=== PATIENT | female | born 1940 | race Caucasian/White ===

== ENCOUNTER 2021-06-27 19:43 | Inpatient (IN) | payer MEDICARE, BC ==
[2021-06-27] MEDS ORDERED: Albuterol/Ipratropium 3.0-0.5 MG/3 ML Neb Soln NEB ONE (20:15)
[2021-06-27 20:56] LABS: CORONAVIRUS COVID-19 NAA NEGATIVE (NEGATIVE)
[2021-06-27] MEDS ORDERED: Doxycycline Susp 25 MG/5 ML 60 ML Bottle PO ONE (21:08)
[2021-06-27] MEDS ORDERED: cefTRIAXone 1 GM in Sodium Chloride 0.9% 100 ML IV ONE (21:08)
[2021-06-27] MEDS ORDERED: Albuterol 0.083% 2.5 MG/3 ML Neb Soln NEB PRN (22:27)
[2021-06-27] MEDS ORDERED: Acetaminophen 325 MG Tab PO PRN (22:36)
[2021-06-27] MEDS ORDERED: Ondansetron 4 MG/2 ML SDV IVPUSH PRN (22:36)
[2021-06-27] MEDS ORDERED: Doxycycline 100 MG Cap PO ONE (23:45)
[2021-06-28] MEDS: Albuterol/Ipratropium 3.0-0.5 MG/3 ML Neb Soln NEB SCH ×3 (02:02→09:17)
[2021-06-28] MEDS: Pantoprazole 40 MG Tab.CR PO SCH ×2 (06:28→16:51)
[2021-06-28] MEDS: Levothyroxine 100 MCG Tab PO SCH (06:28)
[2021-06-28] MEDS: ClonazePAM 1 MG Tab PO PRN ×2 (06:35→21:12)
[2021-06-28] MEDS ORDERED: FLUoxetine 20 MG Cap PO SCH (07:00)
[2021-06-28] MEDS: Metoprolol Tartrate 50 MG Tab PO SCH ×2 (07:56→16:51)
[2021-06-28] MEDS: Furosemide 20 MG Tab PO SCH (08:00)
[2021-06-28] MEDS: FLUoxetine 20 MG Cap PO SCH (08:00)
[2021-06-28] MEDS: Sucralfate 1 GM Tab PO SCH ×2 (08:00→21:05)
[2021-06-28] MEDS: Enoxaparin 40 MG/0.4 ML Syringe SUBCUT SCH (08:00)
[2021-06-28] MEDS ORDERED: Sucralfate 1 GM Tab PO SCH (09:00)
[2021-06-28] MEDS ORDERED: Doxycycline 100 MG Cap PO SCH (09:00)
[2021-06-28] MEDS ORDERED: LIDO PO PRN (09:22)
[2021-06-28] MEDS ORDERED: [UNRECOGNIZED DRUG - OTHER] PO PRN (09:22)
[2021-06-28] MEDS ORDERED: DIPHEN PO PRN (09:22)
[2021-06-28] MEDS: guaiFENesin/Dextromethorphan 100-10 MG/5 ML Soln 5 ML Cup PO SCH ×2 (13:32→21:05)
[2021-06-28] MEDS: Albuterol/Ipratropium 3.0-0.5 MG/3 ML Neb Soln NEB PRN ×2 (15:05→20:51)
[2021-06-28] MEDS: Doxycycline 100 MG Cap PO SCH (18:06)
[2021-06-28] MEDS: cefTRIAXone 2 GM in Sodium Chloride 0.9% 100 ML IV SCH (21:09)
[2021-06-29] MEDS: Doxycycline 100 MG Cap PO SCH ×2 (06:15→20:16)
[2021-06-29] MEDS: ClonazePAM 1 MG Tab PO PRN (06:15)
[2021-06-29] MEDS: FLUoxetine 20 MG Cap PO SCH (06:16)
[2021-06-29] MEDS: Levothyroxine 100 MCG Tab PO SCH (06:16)
[2021-06-29] MEDS: guaiFENesin/Dextromethorphan 100-10 MG/5 ML Soln 5 ML Cup PO SCH ×3 (06:17→20:15)
[2021-06-29] MEDS: Pantoprazole 40 MG Tab.CR PO SCH ×2 (06:17→16:44)
[2021-06-29] MEDS: Metoprolol Tartrate 50 MG Tab PO SCH ×2 (06:17→16:43)
[2021-06-29] MEDS: Albuterol/Ipratropium 3.0-0.5 MG/3 ML Neb Soln NEB PRN ×3 (07:57→20:43)
[2021-06-29] MEDS: Enoxaparin 40 MG/0.4 ML Syringe SUBCUT SCH (08:20)
[2021-06-29] MEDS: Sucralfate 1 GM Tab PO SCH ×2 (08:20→20:16)
[2021-06-29] MEDS: Furosemide 20 MG Tab PO SCH (08:20)
[2021-06-29] MEDS ORDERED: LORazepam 2 MG/ML SDV IVPUSH ONE (13:08)
[2021-06-29] MEDS: cefTRIAXone 2 GM in Sodium Chloride 0.9% 100 ML IV SCH (22:36)
[2021-06-30] MEDS: Doxycycline 100 MG Cap PO SCH ×2 (05:54→18:10)
[2021-06-30] MEDS: Levothyroxine 100 MCG Tab PO SCH (05:55)
[2021-06-30] MEDS: Pantoprazole 40 MG Tab.CR PO SCH ×2 (05:55→16:57)
[2021-06-30] MEDS: Metoprolol Tartrate 50 MG Tab PO SCH ×2 (06:00→16:57)
[2021-06-30] MEDS: FLUoxetine 20 MG Cap PO SCH (06:03)
[2021-06-30] MEDS: guaiFENesin/Dextromethorphan 100-10 MG/5 ML Soln 5 ML Cup PO SCH ×3 (06:03→21:45)
[2021-06-30] MEDS: Furosemide 20 MG Tab PO SCH (08:13)
[2021-06-30] MEDS: Sucralfate 1 GM Tab PO SCH ×2 (08:13→21:45)
[2021-06-30] MEDS: ClonazePAM 1 MG Tab PO PRN (08:13)
[2021-06-30] MEDS: Enoxaparin 40 MG/0.4 ML Syringe SUBCUT SCH (08:14)
[2021-06-30] MEDS ORDERED: methylPREDNISolone Sodium Succinate 125 MG/2 ML SDV IVPUSH ONE (09:48)
[2021-06-30] MEDS: Albuterol/Ipratropium 3.0-0.5 MG/3 ML Neb Soln NEB SCH ×3 (11:15→20:12)
[2021-06-30] MEDS: Cholecalciferol (Vitamin D3) 5,000 UNIT Tab PO SCH (12:47)
[2021-06-30] MEDS: LORazepam 0.5 MG Tab PO SCH (21:45)
[2021-06-30] MEDS: cefTRIAXone 2 GM in Sodium Chloride 0.9% 100 ML IV SCH (22:14)
[2021-07-01] MEDS: Albuterol/Ipratropium 3.0-0.5 MG/3 ML Neb Soln NEB SCH ×2 (06:16→08:59)
[2021-07-01] MEDS: FLUoxetine 20 MG Cap PO SCH (06:26)
[2021-07-01] MEDS: Metoprolol Tartrate 50 MG Tab PO SCH (06:26)
[2021-07-01] MEDS: Doxycycline 100 MG Cap PO SCH (06:26)
[2021-07-01] MEDS: Pantoprazole 40 MG Tab.CR PO SCH (06:26)
[2021-07-01] MEDS: Levothyroxine 100 MCG Tab PO SCH (06:26)
[2021-07-01] MEDS: guaiFENesin/Dextromethorphan 100-10 MG/5 ML Soln 5 ML Cup PO SCH (06:27)
[2021-07-01] MEDS ORDERED: predniSONE 20 MG Tab PO SCH (07:00)
[2021-07-01] MEDS: Furosemide 20 MG Tab PO SCH (09:59)
[2021-07-01] MEDS: Cholecalciferol (Vitamin D3) 5,000 UNIT Tab PO SCH (09:59)
[2021-07-01] MEDS: Sucralfate 1 GM Tab PO SCH (09:59)
[2021-07-01] MEDS: Enoxaparin 40 MG/0.4 ML Syringe SUBCUT SCH (10:00)
[2021-07-01] MEDS: LORazepam 0.5 MG Tab PO SCH (10:00)
[2021-07-01 12:42] VITALS: BP 115/73; PULSE 75
== END 2021-07-01 12:10 | disposition home health service (06) | DRG 193 ==
LOC: JD.ED 19:43 → JD.MS 22:23
PROVIDERS: ADMIT Internal Medicine; ATTEND Internal Medicine
DX: J18.9 Pneumonia, unspecified organism (principal); J96.21 Acute and chronic respiratory failure with hypoxia; J44.0 Chronic obstructive pulmonary disease with (acute) lower respiratory infection; J44.1 Chronic obstructive pulmonary disease with (acute) exacerbation; E87.1 Hypo-osmolality and hyponatremia; F32.0 Major depressive disorder, single episode, mild; K21.9 Gastro-esophageal reflux disease without esophagitis; E03.9 Hypothyroidism, unspecified; H91.90 Unspecified hearing loss, unspecified ear; E55.9 Vitamin D deficiency, unspecified; Z85.01 Personal history of malignant neoplasm of esophagus; Z79.52 Long term (current) use of systemic steroids; Z79.899 Other long term (current) drug therapy; Z79.890 Hormone replacement therapy; Z97.4 Presence of external hearing-aid; Z86.19 Personal history of other infectious and parasitic diseases; Z90.49 Acquired absence of other specified parts of digestive tract; F41.1 Generalized anxiety disorder; I50.9 Heart failure, unspecified; Z86.14 Personal history of Methicillin resistant Staphylococcus aureus infection; Z20.822 Contact with and (suspected) exposure to COVID-19; S22.41XD Multiple fractures of ribs, right side, subsequent encounter for fracture with routine healing
CPT/HCPCS: 0240U; 36415; 36600; 71045; 80048; 80053; 82306; 82553; 82803; 83605; 83735; 83880; 84484; 85025; 85610; 85730; 86140; 86738; 87040; 93005; 94640; 94667; 94668; 94761; 96365; 97116; 97162; 97530; 99285; A9270-GY; J0696; J1650; J2060; J2930; J7512; J7620-GY

== ENCOUNTER 2021-08-17 12:58 | Emergency (ER) | payer MEDICARE, BC ==
[2021-08-17] MEDS ORDERED: Sodium Chloride 0.9% 10 ML Syringe FLUSH PRN (13:27)
[2021-08-17] MEDS ORDERED: Albuterol 0.083% 2.5 MG/3 ML Neb Soln NEB ONE (13:27)
[2021-08-17 14:13] LABS: ESTIMATED GFR > 60 mL/min (>60)
== END 2021-08-17 16:02 | disposition home or self-care (01) ==
LOC: SUPCPDRO 12:58 → JD.ED 12:58
DX: J44.1 Chronic obstructive pulmonary disease with (acute) exacerbation (principal); I10 Essential (primary) hypertension; E03.9 Hypothyroidism, unspecified; K21.9 Gastro-esophageal reflux disease without esophagitis; Z79.899 Other long term (current) drug therapy; Z87.891 Personal history of nicotine dependence
CPT/HCPCS: 36415; 71045; 71045-26; 80053; 81001; 83735; 83880; 84484; 85025; 85379; 86140; 93005; 93010; 94640; 99284; 99285-25

== ENCOUNTER 2021-09-14 04:00 | Inpatient (IN) | payer MEDICARE, BC ==
[2021-09-14] MEDS ORDERED: predniSONE 20 MG Tab PO ONE (04:08)
[2021-09-14] MEDS ORDERED: Albuterol/Ipratropium 3.0-0.5 MG/3 ML Neb Soln NEB ONE ×3 (04:08→12:30)
[2021-09-14 04:59] LABS: ESTIMATED GFR 99 mL/min (>60)
[2021-09-14] MEDS ORDERED: Levofloxacin/Dextrose 5%-Water 750 MG in Premix Bag 1 BAG IV ONE (05:15)
[2021-09-14] MEDS: Aluminum Hydroxide/Magnesium Hydroxide/Simethicone Susp 30 ML Cup PO PRN (12:10)
[2021-09-14] MEDS ORDERED: Magnesium Hydroxide 400 MG/5 ML Susp 30 ML Cup PO PRN (13:37)
[2021-09-14] MEDS ORDERED: Ondansetron 4 MG Tab.DIS PO PRN (13:37)
[2021-09-14] MEDS ORDERED: Albuterol 0.083% 2.5 MG/3 ML Neb Soln NEB PRN (13:37)
[2021-09-14] MEDS ORDERED: Saccharomyces Boulardii (Probiotic) 250 MG Cap PO PRN (14:12)
[2021-09-14] MEDS ORDERED: FLUoxetine 20 MG Cap PO SCH (14:30)
[2021-09-14] MEDS: Famotidine 20 MG Tab PO SCH (14:59)
[2021-09-14] MEDS: FLUoxetine 20 MG Cap PO SCH (14:59)
[2021-09-14] MEDS: LORazepam 0.5 MG Tab PO PRN ×2 (14:59→20:34)
[2021-09-14] MEDS: Azithromycin 500 MG in Sodium Chloride 0.9% 250 ML IV SCH (15:00)
[2021-09-14] MEDS ORDERED: Ondansetron 4 MG/2 ML SDV IVPUSH PRN (15:11)
[2021-09-14] MEDS ORDERED: Ondansetron 4 MG/2 ML SDV ONE (15:13)
[2021-09-14] MEDS: cefTRIAXone 1 GM in Sodium Chloride 0.9% 100 ML IV SCH (16:33)
[2021-09-14] MEDS: Metoprolol Tartrate 50 MG Tab PO SCH (17:39)
[2021-09-14] MEDS: Albuterol/Ipratropium 3.0-0.5 MG/3 ML Neb Soln INH PRN (20:24)
[2021-09-14] MEDS: diphenhydrAMINE 50 MG Cap PO PRN (20:32)
[2021-09-14] MEDS: Acetaminophen 325 MG Tab PO PRN (20:32)
[2021-09-14] MEDS: Pantoprazole 40 MG Tab.CR PO SCH (20:33)
[2021-09-14] MEDS: Sucralfate 1 GM Tab PO SCH (20:34)
[2021-09-14] MEDS: methylPREDNISolone Sodium Succinate 40 MG/1 ML SDV IVPUSH SCH (20:34)
[2021-09-15] MEDS: Levothyroxine 100 MCG Tab PO SCH (06:27)
[2021-09-15] MEDS: Metoprolol Tartrate 50 MG Tab PO SCH ×2 (06:28→16:36)
[2021-09-15] MEDS ORDERED: FLUoxetine 20 MG Cap PO SCH ×2 (07:00→09:00)
[2021-09-15] MEDS: Pantoprazole 40 MG Tab.CR PO SCH ×2 (09:06→21:37)
[2021-09-15] MEDS: Enoxaparin 30 MG/0.3 ML Syringe SUBCUT SCH (09:06)
[2021-09-15] MEDS: Cholecalciferol (Vitamin D3) 5,000 UNIT Tab PO SCH (09:06)
[2021-09-15] MEDS: Famotidine 20 MG Tab PO SCH (09:06)
[2021-09-15] MEDS: methylPREDNISolone Sodium Succinate 40 MG/1 ML SDV IVPUSH SCH ×2 (09:06→21:38)
[2021-09-15] MEDS: FLUoxetine 20 MG Cap PO SCH (09:06)
[2021-09-15] MEDS: Sucralfate 1 GM Tab PO SCH ×2 (09:06→21:37)
[2021-09-15] MEDS: Albuterol/Ipratropium 3.0-0.5 MG/3 ML Neb Soln INH PRN (10:46)
[2021-09-15] MEDS: LORazepam 0.5 MG Tab PO SCH ×3 (13:12→21:37)
[2021-09-15] MEDS: Azithromycin 500 MG in Sodium Chloride 0.9% 250 ML IV SCH (15:40)
[2021-09-15] MEDS: cefTRIAXone 1 GM in Sodium Chloride 0.9% 100 ML IV SCH (17:21)
[2021-09-15] MEDS: diphenhydrAMINE 50 MG Cap PO PRN (21:38)
[2021-09-15] MEDS: Zolpidem 5 MG Tab PO PRN (21:38)
[2021-09-15] MEDS: Acetaminophen 325 MG Tab PO PRN (21:38)
[2021-09-16] MEDS: Metoprolol Tartrate 50 MG Tab PO SCH ×3 (05:17→17:20)
[2021-09-16] MEDS: Levothyroxine 100 MCG Tab PO SCH (05:18)
[2021-09-16] MEDS: Enoxaparin 30 MG/0.3 ML Syringe SUBCUT SCH (08:07)
[2021-09-16] MEDS: FLUoxetine 20 MG Cap PO SCH (08:07)
[2021-09-16] MEDS: Cholecalciferol (Vitamin D3) 5,000 UNIT Tab PO SCH (08:08)
[2021-09-16] MEDS: Sucralfate 1 GM Tab PO SCH ×2 (08:08→20:31)
[2021-09-16] MEDS: LORazepam 0.5 MG Tab PO SCH ×4 (08:08→20:31)
[2021-09-16] MEDS: Pantoprazole 40 MG Tab.CR PO SCH ×2 (08:08→20:32)
[2021-09-16] MEDS: Famotidine 20 MG Tab PO SCH (08:09)
[2021-09-16] MEDS: Budesonide 0.25 MG/2 ML Neb Susp NEB SCH ×2 (09:57→20:45)
[2021-09-16] MEDS: Albuterol/Ipratropium 3.0-0.5 MG/3 ML Neb Soln INH SCH ×3 (09:57→20:45)
[2021-09-16] MEDS: Azithromycin 500 MG in Sodium Chloride 0.9% 250 ML IV SCH (15:05)
[2021-09-16] MEDS: cefTRIAXone 1 GM in Sodium Chloride 0.9% 100 ML IV SCH (16:26)
[2021-09-16] MEDS ORDERED: Budesonide 0.25 MG/2 ML Neb Susp NEB SCH (21:00)
[2021-09-17] MEDS: Albuterol/Ipratropium 3.0-0.5 MG/3 ML Neb Soln INH SCH ×4 (03:17→21:03)
[2021-09-17] MEDS: Metoprolol Tartrate 50 MG Tab PO SCH ×2 (06:09→16:08)
[2021-09-17] MEDS: Levothyroxine 100 MCG Tab PO SCH (06:09)
[2021-09-17] MEDS: Iron Polysaccharides Complex 150 MG Cap PO SCH (08:56)
[2021-09-17] MEDS: FLUoxetine 20 MG Cap PO SCH (08:56)
[2021-09-17] MEDS: Sucralfate 1 GM Tab PO SCH ×2 (08:57→20:07)
[2021-09-17] MEDS: Pantoprazole 40 MG Tab.CR PO SCH ×2 (08:57→20:07)
[2021-09-17] MEDS: LORazepam 0.5 MG Tab PO SCH ×4 (08:58→20:07)
[2021-09-17] MEDS: Famotidine 20 MG Tab PO SCH (08:58)
[2021-09-17] MEDS: predniSONE 5 MG Tab PO SCH (08:58)
[2021-09-17] MEDS: Cholecalciferol (Vitamin D3) 5,000 UNIT Tab PO SCH (08:58)
[2021-09-17] MEDS: Enoxaparin 30 MG/0.3 ML Syringe SUBCUT SCH (08:59)
[2021-09-17] MEDS: Budesonide 0.25 MG/2 ML Neb Susp NEB SCH ×2 (09:16→21:04)
[2021-09-17] MEDS: Polyethylene Glycol 3350 Powder 17 GM Packet PO SCH (10:54)
[2021-09-17] MEDS: Magnesium Oxide 400 MG Tab PO SCH (10:54)
[2021-09-17] MEDS: cefTRIAXone 1 GM in Sodium Chloride 0.9% 100 ML IV SCH (16:06)
[2021-09-18] MEDS: Albuterol/Ipratropium 3.0-0.5 MG/3 ML Neb Soln INH SCH ×4 (03:06→21:37)
[2021-09-18] MEDS: Levothyroxine 100 MCG Tab PO SCH (06:20)
[2021-09-18] MEDS: Metoprolol Tartrate 50 MG Tab PO SCH ×2 (06:20→16:23)
[2021-09-18] MEDS: Magnesium Oxide 400 MG Tab PO SCH (09:10)
[2021-09-18] MEDS: Pantoprazole 40 MG Tab.CR PO SCH ×2 (09:10→21:09)
[2021-09-18] MEDS: Sucralfate 1 GM Tab PO SCH ×2 (09:10→21:09)
[2021-09-18] MEDS: Famotidine 20 MG Tab PO SCH (09:10)
[2021-09-18] MEDS: predniSONE 5 MG Tab PO SCH (09:10)
[2021-09-18] MEDS: Cholecalciferol (Vitamin D3) 5,000 UNIT Tab PO SCH (09:10)
[2021-09-18] MEDS: LORazepam 0.5 MG Tab PO SCH ×4 (09:10→21:08)
[2021-09-18] MEDS: Iron Polysaccharides Complex 150 MG Cap PO SCH (09:10)
[2021-09-18] MEDS: Enoxaparin 30 MG/0.3 ML Syringe SUBCUT SCH (09:10)
[2021-09-18] MEDS: Polyethylene Glycol 3350 Powder 17 GM Packet PO SCH (09:10)
[2021-09-18] MEDS: Budesonide 0.5 MG/2 ML Neb Susp NEB SCH ×2 (09:31→21:37)
[2021-09-18] MEDS: FLUoxetine 20 MG Cap PO SCH (09:48)
[2021-09-18] MEDS ORDERED: Aluminum Hydroxide/Magnesium Hydroxide/Simethicone Susp 30 ML Cup PO PRN (13:18)
[2021-09-18] MEDS: Aluminum Hydroxide/Magnesium Hydroxide/Simethicone Susp 30 ML Cup PO PRN ×2 (13:27→17:47)
[2021-09-18] MEDS: cefTRIAXone 1 GM in Sodium Chloride 0.9% 100 ML IV SCH (16:26)
[2021-09-18] MEDS: Zolpidem 5 MG Tab PO PRN (21:10)
[2021-09-19] MEDS: Albuterol/Ipratropium 3.0-0.5 MG/3 ML Neb Soln INH SCH ×4 (02:57→20:53)
[2021-09-19] MEDS: Metoprolol Tartrate 50 MG Tab PO SCH ×3 (05:19→16:33)
[2021-09-19] MEDS: Levothyroxine 100 MCG Tab PO SCH (05:20)
[2021-09-19] MEDS: LORazepam 0.5 MG Tab PO SCH ×4 (08:48→20:42)
[2021-09-19] MEDS: FLUoxetine 20 MG Cap PO SCH (08:48)
[2021-09-19] MEDS: Famotidine 20 MG Tab PO SCH (08:48)
[2021-09-19] MEDS: Enoxaparin 30 MG/0.3 ML Syringe SUBCUT SCH (08:49)
[2021-09-19] MEDS: Sucralfate 1 GM Tab PO SCH ×2 (08:49→20:42)
[2021-09-19] MEDS: Cholecalciferol (Vitamin D3) 5,000 UNIT Tab PO SCH (08:49)
[2021-09-19] MEDS: predniSONE 5 MG Tab PO SCH (08:49)
[2021-09-19] MEDS: Polyethylene Glycol 3350 Powder 17 GM Packet PO SCH (08:49)
[2021-09-19] MEDS: Magnesium Oxide 400 MG Tab PO SCH (08:49)
[2021-09-19] MEDS: Pantoprazole 40 MG Tab.CR PO SCH ×2 (08:49→20:42)
[2021-09-19] MEDS: Iron Polysaccharides Complex 150 MG Cap PO SCH (08:49)
[2021-09-19] MEDS: Budesonide 0.5 MG/2 ML Neb Susp NEB SCH ×2 (09:27→20:53)
[2021-09-19] MEDS ORDERED: Levofloxacin 500 MG Tab PO ONE (14:00)
[2021-09-20] MEDS: Albuterol/Ipratropium 3.0-0.5 MG/3 ML Neb Soln INH SCH ×3 (03:40→19:19)
[2021-09-20] MEDS: Levothyroxine 100 MCG Tab PO SCH (05:46)
[2021-09-20] MEDS: Metoprolol Tartrate 50 MG Tab PO SCH ×3 (05:46→20:17)
[2021-09-20] MEDS: Budesonide 0.5 MG/2 ML Neb Susp NEB SCH (08:21)
[2021-09-20] MEDS: FLUoxetine 20 MG Cap PO SCH (09:24)
[2021-09-20] MEDS: Iron Polysaccharides Complex 150 MG Cap PO SCH (09:24)
[2021-09-20] MEDS: Magnesium Oxide 400 MG Tab PO SCH (09:25)
[2021-09-20] MEDS: predniSONE 5 MG Tab PO SCH (09:25)
[2021-09-20] MEDS: LORazepam 0.5 MG Tab PO SCH ×3 (09:25→20:17)
[2021-09-20] MEDS: Pantoprazole 40 MG Tab.CR PO SCH (09:25)
[2021-09-20] MEDS: Famotidine 20 MG Tab PO SCH (09:25)
[2021-09-20] MEDS: Polyethylene Glycol 3350 Powder 17 GM Packet PO SCH (09:25)
[2021-09-20] MEDS: Cholecalciferol (Vitamin D3) 5,000 UNIT Tab PO SCH (09:25)
[2021-09-20] MEDS: Enoxaparin 30 MG/0.3 ML Syringe SUBCUT SCH (09:25)
[2021-09-20] MEDS: Sucralfate 1 GM Tab PO SCH (11:11)
[2021-09-20] MEDS: Aluminum Hydroxide/Magnesium Hydroxide/Simethicone Susp 30 ML Cup PO PRN (12:39)
[2021-09-20] MEDS ORDERED: Levofloxacin 250 MG Tab PO SCH (14:00)
== END 2021-09-20 14:00 | DRG 193 ==
LOC: JD.ED 04:00 → JD.MS 08:49
PROVIDERS: ADMIT Pediatrics; ATTEND Internal Medicine
DX: J18.9 Pneumonia, unspecified organism (principal); J44.0 Chronic obstructive pulmonary disease with (acute) lower respiratory infection; I10 Essential (primary) hypertension; E43 Unspecified severe protein-calorie malnutrition; J96.21 Acute and chronic respiratory failure with hypoxia; E87.1 Hypo-osmolality and hyponatremia; J98.11 Atelectasis; Z68.1 Body mass index [BMI] 19.9 or less, adult; B96.5 Pseudomonas (aeruginosa) (mallei) (pseudomallei) as the cause of diseases classified elsewhere; Z99.81 Dependence on supplemental oxygen; Z79.899 Other long term (current) drug therapy; Z66 Do not resuscitate; Z20.822 Contact with and (suspected) exposure to COVID-19; F41.9 Anxiety disorder, unspecified; M81.0 Age-related osteoporosis without current pathological fracture; D50.8 Other iron deficiency anemias; E03.9 Hypothyroidism, unspecified; F32.A Depression, unspecified; F32.89 Other specified depressive episodes; K59.09 Other constipation; K21.9 Gastro-esophageal reflux disease without esophagitis; Z90.49 Acquired absence of other specified parts of digestive tract; Z98.890 Other specified postprocedural states; Z85.01 Personal history of malignant neoplasm of esophagus; Z86.59 Personal history of other mental and behavioral disorders; H91.90 Unspecified hearing loss, unspecified ear; J43.9 Emphysema, unspecified; I50.9 Heart failure, unspecified; I11.0 Hypertensive heart disease with heart failure; Z79.52 Long term (current) use of systemic steroids
CPT/HCPCS: 36415; 71045; 80053; 83605; 85025; 87040 ×2; 94640 ×4; 96365; 99285; J1956; J7512; U0002; 80048; 82607; 82728; 83540; 83735; 83880; 83935; 85045; 85379; 85730; 86140; 86738; 87070; 87077; 87186; 87205; 92610-GN; 94667; 94668; 94760; 94761; 97110-GP; 97162-GP; 97530-GP; 99284; A9270-GY; J0456; J0696; J1650; J2405; J2920; J7050; J7620-GY; Q0163